=== PATIENT | female | born 1985 | race Caucasian/White ===

== ENCOUNTER 2024-08-05 14:01 | Emergency (ER) | payer OTHER ==
[~2024-08-05] VITALS: Ht 165.1 cm; Wt 61.2 kg
[2024-08-05 14:10] VITALS: BP 165/101; TEMP 98.4; O2SAT 98
== END 2024-08-05 16:00 | disposition home or self-care (01) ==
LOC: ER 14:15
DX: M79.10 Myalgia, unspecified site (principal); Z53.21 Procedure and treatment not carried out due to patient leaving prior to being seen by health care provider